=== PATIENT | male | born 1985 | race Caucasian/White ===

== ENCOUNTER → 2025-08-03 17:05 | Outpatient (REF) | payer BC, SELFPAY | LOC: RCS 17:05 | PROVIDERS: ATTENDING PHYSICIAN Nurse Practitioner Family; FAMILY PHYSICIAN Family Medicine | DX: Z13.6 Encounter for screening for cardiovascular disorders (principal); Z82.49 Family history of ischemic heart disease and other diseases of the circulatory system | CPT/HCPCS: 93306 ==